=== PATIENT | male | born 1970 | race Caucasian/White ===

== ENCOUNTER 2019-04-30 17:47 | Inpatient (IN) | payer SELFPAY ==
[~2019-04-30] VITALS: Ht 167.6 cm; Wt 70.8 kg
[2019-04-30] MEDS ORDERED: IV NS 0.9% 1,000 ML BAG IV ONE (18:00)
--- NOTE | 2019-04-30 18:00 | NUR ---
PT SENT BY URGENT CARE FOR EVAL D/T L FLANK AND ABDOMINAL PAIN. PT C/O COLD SWEATS AND FEVER SINCE YESTERDAY. PT AAOX4,VSS, BREATHING EVEN AND UNLABORED ON ROOM AIR, AMBULATORY. PT CONNECTED TO THE MONITOR.
--- NOTE | 2019-04-30 18:15 | NUR ---
BLOOD COLLECTED AND SENT TO LAB
--- NOTE | 2019-04-30 18:15 | NUR ---
URINE COLLECTED AND SENT TO LAB
[2019-04-30 18:16] LABS: BASOPHILS % (AUTO) 0.2 % (0.0-2.0); EOSINOPHILS % (AUTO) 0.9 % (0.0-6.0); HEMATOCRIT 42 % (39-51); HEMOGLOBIN 13.7 g/dL (13.5-17.5); LYMPHOCYTES # (AUTO) 1.5 /CMM (0.8-4.8); LYMPHOCYTES % (AUTO) 10.5 % (20.0-44.0); MEAN CORPUSCULAR HGB CONC 33 g/dl (31.0-36.0); MEAN CORPUSCULAR VOLUME 88 fL (80-96); MONOCYTES # (AUTO) 1.2 /CMM (0.1-1.30); MONOCYTES % (AUTO) 8.5 % (2.0-12.0); NEUTROPHILS # (AUTO) 11.7 /CMM (1.8-8.9); NEUTROPHILS % (AUTO) 79.9 % (43.0-81.0); PLATELET COUNT (AUTO) 253 /CMM (150-450); RED BLOOD CELL COUNT(AUTO) 4.77 MIL/uL (4.5-6.0); WHITE BLOOD COUNT (AUTO) 14.6 K/uL (4.3-11.0)
--- NOTE | 2019-04-30 18:20 | NUR ---
PT TAKEN TO CT
[2019-04-30 18:28] LABS: CARBON DIOXIDE 25 mmol/L (21-32); CHLORIDE 102 mmol/L (98-107); CREATININE 0.9 mg/dL (0.6-1.3); GLUCOSE 97 mg/dL (74-106); POTASSIUM 3.7 mmol/L (3.5-5.1); SODIUM SERUM 136 mmol/L (136-145); UREA NITROGEN, BLOOD 14 mg/dL (7-18)
[2019-04-30 18:34] LABS: ALANINE AMINOTRANSFERASE 14 U/L (12-78); ALBUMIN 3.3 g/dL (3.4-5.0); ALKALINE PHOSPHATASE 43 U/L (46-116); ASPARTATE AMINOTRANSFERASE 11 U/L (15-37); BILIRUBIN,DIRECT 0.2 mg/dL (0.0-0.2); BILIRUBIN,TOTAL 0.7 mg/dL (0.2-1.0); TOTAL PROTEIN, SERUM 7.4 g/dL (6.4-8.2)
--- NOTE | 2019-04-30 18:39 | NUR ---
PT BACK FROM CT
[2019-04-30 18:41] LABS: APPEARANCE,URINE Turbid (CLEAR); BILIRUBIN,URINE MODERATE (NEGATIVE); BLOOD, URINE Negative Ery/uL (NEGATIVE); COLOR,URINE Dark (YELLOW); KETONES,URINE 80 (NEGATIVE); LEUKOCYTE ESTERASE ,URINE Negative (NEGATIVE); NITRITE, URINE Negative (NEGATIVE); PROTEIN,URINE 100 mg/dl (NEGATIVE); UGLUCOSE Negative (NEGATIVE); UROBILINOGEN,URINE 0.2 EU/dL (0.2)
[2019-04-30] MEDS ORDERED: PIPERACILLIN /TAZOBACTAM 3.375 G in IV D5W 50 ML IV ONE (19:00)
[2019-04-30] MEDS ORDERED: PIPERACILLIN /TAZOBACTAM 3.375 G VIAL IV ONE (19:08)
--- NOTE | 2019-04-30 19:08 | NUR ---
SHIMON LONG GENERATOR SWITCHBOARD OPERATOR SURGERY [phone]
[2019-04-30 19:39] LABS: RBC,URINE 0-2 /HPF (0-2)
[2019-04-30 19:40] LABS: BACTERIA,URINE Few /HPF (None Seen); MUCUS,URINE Moderate /LPF (None Seen); SQUAMOUS EPITHELIAL CELL,UR Few /HPF (None Seen); WBC,URINE 0-2 /HPF (0-3)
--- NOTE | 2019-04-30 19:59 | NUR ---
CALLED FOR [facility]
[2019-04-30] MEDS ORDERED: MORPHINE SULFATE INJ 2 MG/ML DISP.SYRIN IV PRN (20:00)
[2019-04-30] MEDS ORDERED: LORAZEPAM INJ 2 MG/ML VIAL IV PRN (20:00)
[2019-04-30] MEDS ORDERED: ONDANSETRON HCL/PF 4 MG/2 ML VIAL IVP PRN (20:00)
--- NOTE | 2019-04-30 20:09 | NUR ---
RECIEVED BED 314-2
--- NOTE | 2019-04-30 20:24 | NUR ---
REPORT GIVEN TO AVERY MANNING.
--- NOTE | 2019-04-30 20:30 | NUR ---
MS RN NOTE RECEIVED ARRIVED TO FLOOR VIA GURNEY ACCOMPANIED BY SON AND WORK [employer]. PT IN STABLE CONDITION A/O X4, CURRENTLY SPEAKING WITH SON. NO SIGNS OF SOB OR DISTRESS. NO C/O PAIN OR N/V. PT AWARE OF NPO STATUS. IV IN R AC #[address] WITH IVF INFUSING. ALL CURRENT NEEDS ATTENDED TO. BED LOW, LOCKED, UPPER RAILS UP, AND CALL LIGHT WITHIN REACH. WILL CONT TO MONITOR. BODY ASSESSED, NOTED TO BE INTACT. ALL BELONGINGS ACCOUNTED AND SIGNED FOR.
--- NOTE | 2019-04-30 20:47 | NUR ---
PATIENT TRANSFERRED TO ROOM 314-1 IN STABLE CONDITION.
[2019-04-30] MEDS: IV NS 0.9% 1,000 ML IV PRN (21:06)
[2019-04-30 21:42] VITALS: BP 148/75
[2019-04-30] MEDS: ACETAMINOPHEN 650 MG/SUPP.RECT RC PRN (23:56)
[2019-05-01] MEDS ORDERED: PIPERACILLIN /TAZOBACTAM 3.375 G in IV D5W 50 ML IV SCH ×2
--- NOTE | 2019-05-01 00:10 | NUR ---
MS RN NOTE PT NOTED WITH FEVER 100.8, TYLENOL SUPPOSITORY GIVEN. WILL CONT. TO MONITOR.
[2019-05-01 00:11] VITALS: BP 148/75
[2019-05-01] MEDS ORDERED: PIPERACILLIN /TAZOBACTAM 3.375 G VIAL IV ONE (01:18)
--- NOTE | 2019-05-01 01:30 | NUR ---
MS RN NOTE PT TEMP RECHECKED NOTED TO BE 98.1.
[2019-05-01] MEDS: PIPERACILLIN /TAZOBACTAM 3.375 G in IV D5W 100 ML IV SCH ×3 (01:43→17:45)
--- NOTE | 2019-05-01 06:15 | NUR ---
MS RN NOTE PT REMAINS IN STABLE CONDITION A/O X4, CURRENTLY SLEEPING IN BED, EASILY RESPONDS TO NAME. NO SIGNS OF SOB OR DISTRESS. NO C/O PAIN OR N/V. PT AWARE OF NPO STATUS. IV IN R AC #[address] WITH IVF INFUSING, TOLERATING WELL. ALL CURRENT NEEDS ATTENDED TO. BED LOW, LOCKED, UPPER RAILS UP, AND CALL LIGHT WITHIN REACH. WILL CONT TO MONITOR AND ENDORSE TO NEXT SHIFT FOR CHAYITO.
[2019-05-01 07:01] LABS: BASOPHILS % (AUTO) 0.1 % (0.0-2.0); EOSINOPHILS % (AUTO) 1.3 % (0.0-6.0); HEMATOCRIT 40 % (39-51); HEMOGLOBIN 12.9 g/dL (13.5-17.5); LYMPHOCYTES # (AUTO) 0.9 /CMM (0.8-4.8); LYMPHOCYTES % (AUTO) 7.1 % (20.0-44.0); MEAN CORPUSCULAR HGB CONC 32 g/dl (31.0-36.0); MEAN CORPUSCULAR VOLUME 88 fL (80-96); MONOCYTES % (AUTO) 8.6 % (2.0-12.0); NEUTROPHILS % (AUTO) 82.9 % (43.0-81.0); PLATELET COUNT (AUTO) 216 /CMM (150-450); RED BLOOD CELL COUNT(AUTO) 4.55 MIL/uL (4.5-6.0)
[2019-05-01 07:30] LABS: CALCIUM, SERUM 8.6 mg/dL (8.5-10.1); CREATININE 0.9 mg/dL (0.6-1.3); MAGNESIUM 1.7 mg/dL (1.8-2.4)
[2019-05-01] MEDS ORDERED: ALBU8.5H8 IH (07:39)
[2019-05-01 08:00] VITALS: BP 104/65
--- NOTE | 2019-05-01 08:00 | NUR ---
MS RN OPENING NOTES Received Patient awake and resting in bed. A/O x 4. VS stable with no acute distress. Breathing even and unlabored on room air with no respiratory distress. Denies pain. 20g PIV on RAC clean, dry, intact and flushing well with NS running at 75ml/hr. NPO precautions in place. Safety precautions in place. Bed locked and set to lowest position with side rails x 2 up. All needs rendered at this time. Call light within reach. Will continue to monitor.
[2019-05-01] MEDS: ACETAMINOPHEN 650 MG/SUPP.RECT RC PRN (09:02)
--- NOTE | 2019-05-01 09:02 | NUR ---
MS RN NOTES Oral temp - 100.8F. Administered Tylenol 650mg Supp. Provided cooling measures. Patient tolerated well. Will continue to monitor.
--- NOTE | 2019-05-01 10:00 | NUR ---
MS RN NOTES Oral Temp - 99.3F. Patient stated that he is feeling much better and not feverish/chills. Provided more cooling measures. Will continue to monitor.
[2019-05-01] MEDS: Magnesium 1GM/D5W 100ML PREMIX 100 ML IV SCH ×2 (14:18→15:30)
[2019-05-01 16:00] VITALS: BP 112/73
[2019-05-01] MEDS: IV NS 0.9% 1,000 ML IV PRN (17:53)
--- NOTE | 2019-05-01 18:19 | NUR ---
MS RN NOTES Per Kellee POLLARD, resume NPO precautions but may have water at bedside. Order noted and carried out. Patient in stable condition. Will continue to monitor.
--- NOTE | 2019-05-01 18:48 | NUR ---
MS RN CLOSING NOTES Patient awake and resting in bed. A/O x 4. VS stable with no acute distress. Breathing even and unlabored on room air with no respiratory distress. Denies pain. 20g PIV on RAC clean, dry, intact and flushing well with NS running at 75ml/hr. NPO precautions in place, but per Kellee POLLARD, may have water at bedside. Safety precautions in place. Bed locked and set to lowest position with side rails x 2 up. All needs rendered at this time. at bedside. Call light within reach. Will endorse plan of care to oncoming shift.
--- NOTE | 2019-05-01 19:15 | NUR ---
MS RN OPENING NOTES Received patient A/O x4, awake on bed. On RA, no SOB/respiratory distress noted. Patient denies discomfort at this time. Kept on bed clean, dry and comfortable. Discussed to patient the POC for the night, patient verbalized understanding. Call light within easy reach. Will continue to monitor accordingly.
[2019-05-01 19:56] VITALS: BP 123/72
[2019-05-01 20:00] VITALS: BP 123/70
[2019-05-01] MEDS ORDERED: ACETAMINOPHEN 325 MG TABLET PO PRN ×2 (22:30)
[2019-05-02] MEDS: PIPERACILLIN /TAZOBACTAM 3.375 G in IV D5W 100 ML IV SCH ×3 (01:31→17:26)
--- NOTE | 2019-05-02 06:34 | NUR ---
MS RN CLOSING NOTES Patient awake on bed, on RA, no SOB/respiratory distress noted. No complaints/new unusualities noted within the shift. All due meds given as order, no ASE noted. All nursing needs attended. Patient had shower, IV site wrapped to keep dry and intact. Patient able to perform ADLs independently. Call light within easy reach. Kept on bed clean, dry and comfortable. Endorsed to the next shift for CHAYITO.
[2019-05-02 06:36] LABS: BASOPHILS % (AUTO) 0.2 % (0.0-2.0); EOSINOPHILS % (AUTO) 3.7 % (0.0-6.0); HEMATOCRIT 38 % (39-51); HEMOGLOBIN 12.9 g/dL (13.5-17.5); LYMPHOCYTES # (AUTO) 1.1 /CMM (0.8-4.8); MEAN CORPUSCULAR HGB CONC 34 g/dl (31.0-36.0); MEAN CORPUSCULAR VOLUME 87 fL (80-96); MONOCYTES # (AUTO) 0.8 /CMM (0.1-1.30); MONOCYTES % (AUTO) 8.4 % (2.0-12.0); NEUTROPHILS # (AUTO) 7.8 /CMM (1.8-8.9); NEUTROPHILS % (AUTO) 76.7 % (43.0-81.0); PLATELET COUNT (AUTO) 243 /CMM (150-450); RED BLOOD CELL COUNT(AUTO) 4.44 MIL/uL (4.5-6.0); WHITE BLOOD COUNT (AUTO) 10.1 K/uL (4.3-11.0)
[2019-05-02 06:54] LABS: CALCIUM, SERUM 8.6 mg/dL (8.5-10.1); CREATININE 0.9 mg/dL (0.6-1.3); MAGNESIUM 1.9 mg/dL (1.8-2.4); PHOSPHORUS 3.2 mg/dL (2.5-4.9); POTASSIUM 4.2 mmol/L (3.5-5.1)
[2019-05-02 08:00] VITALS: BP 97/66
--- NOTE | 2019-05-02 08:00 | NUR ---
RN NOTES RECEIVED PATIENT IN THE BED A/O X4 NO ACUTE RESPIRATORY DISTRESS, NPO, BUT PER SURGEON Dr LONG OK WATER TO DRINK. PATIENT WAS COMPLAINING OF TENDERNESS ON LEFT LOWER QUADRANT OF ABDOMEN, INFUSING NS AT 75 ML/HR ON RIGHT AC AREA INTACT, V/S STABLE. PATIENT USING BATHROOM. CALL LIGHT WITHIN TO REACH. SAFETY PRECAUTION MAINTAINED ALL THE TIME.
--- NOTE | 2019-05-02 09:00 | NUR ---
RN NOTES SEEN PATIENT BY HOSPITALIST, NO NEW ORDER PATIENT REFUSED NAUSEA/VOMITING, NO DIARRHEA, WAITING SURGEON Dr LONG.
--- NOTE | 2019-05-02 11:00 | NUR ---
RN NOTES SEEN PATIENT BY GI Dr. HOLLAND AT THIS TIME NO NEW ORDERS, CONTINUED MONITORING.
--- NOTE | 2019-05-02 14:15 | NUR ---
RN NOTES GET TO ORDER PER SURGEON Dr. LONG CLEAR LIQUID DIET. ORDER TAKEN AND CARRIED OUT.
--- NOTE | 2019-05-02 15:00 | NUR ---
RN NOTES PATIENT WAS TOLERATED FOOD WELL, NO NAUSEA/VOMITING, AT THIS TIME. FAMILY NEXT TO THE BED. CALL LIGHT WITHIN TO REACH. SAFETY PRECAUTION MAINTAINED ALL THE TIME.
[2019-05-02 16:00] VITALS: BP 114/75
--- NOTE | 2019-05-02 18:30 | NUR ---
RN NOTES PATIENT IN THE BED NO ACUTE RESPIRATORY DISTRESS, HAS BOWEL MOVEMENT X1, TOLERATED DINNER 100 %, REFUSED PAIN AT THIS TIME. AMBULATORY SELF CARE. INFUSING ZOSYN 15 ML/HR ON RIGHT AC AREA INTACT. CALL LIGHT WITHIN TO REACH. SAFETY PRECAUTION MAINTAINED ALL THE TIME. ENDORSED ONCOMING NURSE FOLLOW PLAN OF CARE.
--- NOTE | 2019-05-02 19:30 | NUR ---
RN OPEN NOTES RECEIVED PATIENT AWAKE IN BED. A/O X4. NO SIGNS OF DISTRESS OR DISCOMFORT. BREATHING EVEN AND UNLABORED. DENIES ANY PAIN AT THIS TIME. IV ACCESS IN RAC WITH NS INFUSING, PATENT AND INTACT, NO SIGNS OF REDNESS OR INFILTRATION. BED IN LOW LOCKED POSITION WITH SIDE RAILS X2. CALL LIGHT WITHIN REACH. WILL CONTINUE TO MONITOR.
[2019-05-02 20:00] VITALS: BP 115/70
[2019-05-03] MEDS: PIPERACILLIN /TAZOBACTAM 3.375 G in IV D5W 100 ML IV SCH ×2 (02:38→08:53)
[2019-05-03] MEDS: IV NS 0.9% 1,000 ML IV PRN (02:38)
[2019-05-03 06:20] LABS: BASOPHILS % (AUTO) 0.1 % (0.0-2.0); EOSINOPHILS % (AUTO) 3.4 % (0.0-6.0); HEMATOCRIT 38 % (39-51); HEMOGLOBIN 12.6 g/dL (13.5-17.5); LYMPHOCYTES # (AUTO) 0.9 /CMM (0.8-4.8); LYMPHOCYTES % (AUTO) 9.8 % (20.0-44.0); MEAN CORPUSCULAR HGB CONC 34 g/dl (31.0-36.0); MEAN CORPUSCULAR VOLUME 86 fL (80-96); MONOCYTES # (AUTO) 0.8 /CMM (0.1-1.30); MONOCYTES % (AUTO) 8.5 % (2.0-12.0); NEUTROPHILS % (AUTO) 78.2 % (43.0-81.0); PLATELET COUNT (AUTO) 263 /CMM (150-450); RED BLOOD CELL COUNT(AUTO) 4.39 MIL/uL (4.5-6.0)
[2019-05-03 06:23] LABS: CALCIUM, SERUM 8.8 mg/dL (8.5-10.1); CREATININE 0.8 mg/dL (0.6-1.3); MAGNESIUM 1.8 mg/dL (1.8-2.4); PHOSPHORUS 3.8 mg/dL (2.5-4.9); POTASSIUM 3.8 mmol/L (3.5-5.1)
--- NOTE | 2019-05-03 07:31 | NUR ---
RN CLOSING NOTES PATIENT RESTING IN BED. A/O X4. NO SIGNS OF DISTRESS OR DISCOMFORT. BREATHING EVEN AND UNLABORED. DENIES ANY PAIN AT THIS TIME. IV ACCESS IN RAC WITH NS INFUSING, PATENT AND INTACT, NO SIGNS OF REDNESS OR INFILTRATION. ALL NEEDS MET. NO SIGNIFICANT CHANGES THROUGH THE NIGHT. BED IN LOW LOCKED POSITION WITH SIDE RAILS X2. CALL LIGHT WITHIN REACH. ENDORSED TO AM SHIFT FOR CHAYITO.
[2019-05-03] MEDS ORDERED: METR500T PO (07:44)
[2019-05-03] MEDS ORDERED: CIPR-262 PO (07:44)
[2019-05-03 08:00] VITALS: BP 108/76
--- NOTE | 2019-05-03 08:00 | NUR ---
RN NOTES RECEIVED PATIENT IN THE BED A/O X4, STABLE NO ACUTE RESPIRATORY DISTRESS, V/S STABLE, INFUSING NS AT LEFT AC AREA INTACT 75ML/HR, SEEN HOSPITALIST Dr BAHENA. PATIENT WILL D/C HOME AFTER TOLERATING SOFT DIET.
--- NOTE | 2019-05-03 11:16 | NUR ---
PHARMACOVIGILANCE SAFETY EXPERT NOTES PATIENT DISCHARGE AT THIS TIME GOING HOME. MED RECONCILIATION AND DISCHARGE ORDER REVIEWED AND EXPLAINED TO THE PATIENT. PATIENT VERBALIZED UNDERSTANDING. PATIENT WILL FOLLOW PRIMARY MD. BELONGING WITH THE PATIENT. PRESCRIPTION DONE ELECTRONICALLY BY Dr BAHENA [facility]. PATIENT SIGN PAPERWORK. IV ANTIBIOTIC INFUSION STOP BECAUSE OF FAMILY CAME TO DIRECTOR OF SUSTAINABLE DESIGN PATIENT AT THIS TIME. REMOVED IV ACCESS, AND ID BANDS. PATIENT REFUSED PAIN. ESCORTED PATIENT TO THE LOBBY FOR SAFETY. PATIENT DIRECTOR OF SUSTAINABLE DESIGN BY FRIEND NAME ARYAN PHONE #[phone].
--- NOTE | 2019-05-03 11:41 | NUR ---
Received a call from RN about diet education request. Pt admitted with diverticulitis and no surgical interventions at this time noted. Plans for GI for colonisopy in 6-8 weeks or when returns back to [place] noted. Visited pt today and provided diet education to pt with handouts. Answered all questions. Pt verbalized understanding and appreciated the education. Pt has been discharged today.
== END 2019-05-03 11:00 | disposition home or self-care (01) | DRG 392 ==
LOC: ER 17:47 → MED 20:27
PROVIDERS: ADMIT Nurse Practitioner Acute Care; ATTEND Student in an Organized Health Care Education/Training Program
DX: K57.20 Diverticulitis of large intestine with perforation and abscess without bleeding (principal); E44.1 Mild protein-calorie malnutrition; J45.909 Unspecified asthma, uncomplicated; D72.829 Elevated white blood cell count, unspecified; F17.210 Nicotine dependence, cigarettes, uncomplicated; F10.20 Alcohol dependence, uncomplicated; F12.90 Cannabis use, unspecified, uncomplicated; E83.42 Hypomagnesemia; D64.9 Anemia, unspecified; E88.09 Other disorders of plasma-protein metabolism, not elsewhere classified; Z68.25 Body mass index [BMI] 25.0-25.9, adult
CPT/HCPCS: 36415; 71045-TC; 80048-TC; 80061-TC; 80076-TC; 81000-TC; 83605-TC; 83735-TC; 84100-TC; 84484-TC; 85025-TC; 85730-TC; 87040-TC; 87081-TC; 87086-TC; G0378; J2060; J2543; J3475; J7030; J7050; J7060